=== PATIENT | male | born 1975 | race Caucasian/White ===

== ENCOUNTER 2022-01-01 23:31 | Emergency (ER) | payer BC ==
[2022-01-02] MEDS ORDERED: ASPIRIN 81 MG CHEWABLE TABLET ONE (00:13)
[2022-01-02 00:39] LABS: Absolute Lymphocytes (CBC) 3.3 K/uL (0.7-4.9); Hematocrit 41.4 % (39.6-49.0); Lymphocytes % 38.5 % (15.3-44.8); MCV 86.6 fL (80-100); MPV 8.3 fL (7.6-11.3); RBC Red Blood Cell Count 4.77 M/uL (4.33-5.43)
[2022-01-02 00:56] LABS: Troponin High Sensitivity 4.4 pg/mL (<58.9)
[2022-01-02 00:57] LABS: Potassium 3.7 mmol/L (3.5-5.1)
--- NOTE | 2022-01-02 01:44 | ER ---
Nurse's Notes [facility] Name: Sathya Valladares Age: 46 yrs Sex: Male : 1975 Arrival Date: 01/01/2022 Time: 23:33 Bed 16 Private MD: Diagnosis: Pain in left shoulder;Left sided neck pain Presentation: 01/01 23:42 Chief complaint: Patient states: Intermittent left shoulder/arm pain - began at 2100. ld1 Coronavirus screen: At this time, the client does not indicate any symptoms associated with coronavirus-19. Ebola Screen: No symptoms or risks identified at this time. Initial Sepsis Screen: Does the patient meet any 2 criteria? No. Patient's initial sepsis screen is negative. Does the patient have a suspected source of infection? No. Patient's initial sepsis screen is negative. Risk Assessment: Do you want to hurt yourself or someone else? Patient reports no desire to harm self or others. Onset of symptoms was January 01, 2022. 23:42 Method Of Arrival: Ambulatory ld1 23:42 Acuity: DESTINEE 3 ld1 Triage Assessment: 23:44 General: Appears in no apparent distress. comfortable, Behavior is calm, cooperative, ld1 appropriate for age. Pain: Complains of pain in anterior aspect of left shoulder and left sternocleidomastoid Pain does not radiate. Pain currently is 2 out of 10 on a pain scale. Quality of pain is described as sharp, throbbing, Pain began 2 hours ago. Is intermittent. EENT: No signs and/or symptoms were reported regarding the EENT system. Neuro: Level of Consciousness is awake, alert, obeys commands, Oriented to person, place, time, situation, Appropriate for age. Cardiovascular: Capillary refill < 3 seconds Patient's skin is warm and dry. Respiratory: Airway is patent Respiratory effort is even, unlabored. GI: Abdomen is round non-distended. : No signs and/or symptoms were reported regarding the genitourinary system. Derm: No signs and/or symptoms reported regarding the dermatologic system. Musculoskeletal: No signs and/or symptoms reported regarding the musculoskeletal system. Historical: - Allergies: 23:42 No Known Allergies; ld1 - PMHx: 23:42 Diabetes mellitus; ld1 - PSHx: 23:42 Tonsillectomy; ld1 - Immunization history:: Adult Immunizations up to date, Client reports receiving the 2nd dose of the Covid vaccine. - Social history:: Smoking status: Patient denies any tobacco usage or history of. Patient uses alcohol, occasionally. Screenin/09 00:00 Abuse screen: Denies threats or abuse. Nutritional screening: No deficits noted. jb4 Tuberculosis screening: No symptoms or risk factors identified. Fall Risk None identified. Assessment: 00:00 General: Appears in no apparent distress. uncomfortable, Behavior is calm, cooperative, jb4 appropriate for age. Pain: Complains of pain in left trapezius and left axilla Pain radiates to right axilla and right posterior upper chest wall Pain currently is 4 out of 10 on a pain scale. Neuro: Level of Consciousness is awake, alert, obeys commands, Oriented to person, place, time, situation. Cardiovascular: Patient's skin is warm and dry. Respiratory: Airway is patent Respiratory effort is even, unlabored, Respiratory pattern is regular, symmetrical. Derm: Skin is intact, Skin is pink, warm \T\ dry. Musculoskeletal: Circulation, motion, and sensation intact. Range of motion: intact in all extremities. 01:39 Reassessment: Patient appears in no apparent distress at this time. Patient and/or jb4 family updated on plan of care and expected duration. Pain level reassessed. Patient is alert, oriented x 3, equal unlabored respirations, skin warm/dry/pink. 02:00 Reassessment: Patient appears in no apparent distress at this time. Patient and/or jb4 family updated on plan of care and expected duration. Pain level reassessed. Patient is alert, oriented x 3, equal unlabored respirations, skin warm/dry/pink. Vital Signs: 01/01 23:42 BP 136 / 83; Pulse 80; Resp 18; Temp 97.6(O); Pulse Ox 95% on R/A; Weight 127.01 kg; ld1 Height 5 ft. 11 in. (180.34 cm); Pain 07/06; 01/02 01:39 BP 120 / 79; Pulse 77; Resp 20; Pulse Ox 96% on R/A; jb4 01/01 23:42 Body Mass Index 39.05 (127.01 kg, 180.34 cm) ld1 ED Course: 01/01 23:33 Patient arrived in ED. ja2 23:44 Triage completed. ld1 23:44 Arm band placed on right wrist. ld1 23:51 Pilar Gaspar MD is Attending Physician. sd2 01/02 00:00 Patient has correct armband on for positive identification. Placed in gown. Bed in low jb4 position. Call light in reach. Side rails up X 1. Client placed on continuous cardiac and pulse oximetry monitoring. NIBP monitoring applied. campus monitor on. 00:02 Sathya Valladares, RN is Primary Nurse. jb4 00:34 XRAY Chest (1 view) In Process Unspecified. EDMS 00:34 XRAY Shoulder LEFT 2 view In Process Unspecified. EDMS 01:40 No provider procedures requiring assistance completed. Patient did not have IV access jb4 during this emergency room visit. Administered Medications: 00:12 Drug: Aspirin Chewable Tablet 324 mg Route: PO; jb4 00:45 Follow up: Response: No adverse reaction jb4 Medication: 01:39 VIS not applicable for this client. jb4 Outcome: 01:43 Discharge ordered by . sd2 02:00 Discharged to home ambulatory. jb4 02:00 Condition: stable 02:00 Discharge instructions given to patient, Instructed on discharge instructions, follow up and referral plans. Demonstrated understanding of instructions, follow-up care. 02:17 Patient left the ED. jb4 Signatures: Dispatcher [employer] EDSathya Steen, RN ABEBE jb4 Jeannie Beal RN RN ld1 Jenni Tom ja2 Pilar Gaspar MD MD sd2
--- NOTE | 2022-01-02 01:44 | EDPHYS ---
Physician Documentation [facility] Name: Sathya Valladares Age: 46 yrs Sex: Male : 1975 Arrival Date: 01/01/2022 Time: 23:33 Bed 16 Private MD: ED Physician Pilar Gaspar HPI: 01/01 23:59 This 46 yrs old Male presents to ER via Ambulatory with complaints of Shoulder Pain, sd2 Neck Pain, <24hrs Old, Dizziness. 23:59 46-year-old male presents with a chief complaint of left-sided shoulder and neck pain sd2 that started around 9 PM this evening. Patient reports he had some left anterior shoulder pain that started radiating down his left arm and up into the left side of his neck. He reports he was just sitting down getting children ready for bed when it started. He reports the pain going down his arm and into his neck has subsided but he continues to have a 2 out of 10 pain in his left anterior shoulder. He reports having chest pain in the past that was more midsternal in nature and has had 3 negative stress test in the past. He denies any prior cardiac history and is not currently on any medications aside from diabetes. He is a non-smoker. Did not take anything for the pain [employer]. No significant alleviating or aggravating factors.. Historical: - Allergies: 23:42 No Known Allergies; ld1 - PMHx: 23:42 Diabetes mellitus; ld1 - PSHx: 23:42 Tonsillectomy; ld1 - Immunization history:: Adult Immunizations up to date, Client reports receiving the 2nd dose of the Covid vaccine. - Social history:: Smoking status: Patient denies any tobacco usage or history of. Patient uses alcohol, occasionally. ROS: 23:59 Constitutional: Negative for fever, chills, and weight loss, Eyes: Negative for injury, sd2 pain, redness, and discharge, Cardiovascular: Negative for chest pain, palpitations, and edema, Respiratory: Negative for shortness of breath, cough, wheezing. Abdomen/GI: Negative for abdominal pain, nausea, vomiting, diarrhea. MS/Extremity: Negative for injury and deformity. Positive for left shoulder and neck pain. Skin: Negative for injury, rash, and discoloration, Neuro: Negative for headache, numbness and tingling. Exam: 23:59 Constitutional: This is a well developed, well nourished patient who is awake, alert, sd2 and in no acute distress. Head/Face: Normocephalic, atraumatic. Eyes: EOMI, normal conjunctiva bilaterally Chest/axilla: Normal chest wall appearance and motion. Nontender with no deformity. Cardiovascular: Regular rate and rhythm with a normal S1 and S2. No gallops, murmurs, or rubs. 2+ distal pulses. Respiratory: Lungs have equal breath sounds bilaterally, clear to auscultation and percussion. No rales, rhonchi or wheezes noted. No increased work of breathing, no retractions or nasal flaring. Abdomen/GI: Soft, non-tender, with normal bowel sounds. No guarding or rebound. No evidence of tenderness throughout. Skin: Warm, dry with normal turgor. Normal color with no rashes, no lesions, and no evidence of cellulitis. MS/ Extremity: Pulses equal, no cyanosis. Neurovascular intact. Full, normal range of motion. Ambulatory without difficulty. No pain with ROM of L shoulder. Pain improved with palpation of the area where patient states pain is located at the L anterior shoulder. No midline spinal tenderness of TTP of the L cervical paraspinal area. Psych: Awake, alert, with orientation to person, place and time. Behavior, mood, and affect are within normal limits. 23:59 ECG was reviewed by the Attending Physician. NSR, rate 82, no STEMI criteria, rightward sd2 axis, TWI in lead III Vital Signs: 23:42 BP 136 / 83; Pulse 80; Resp 18; Temp 97.6(O); Pulse Ox 95% on R/A; Weight 127.01 kg; ld1 Height 5 ft. 11 in. (180.34 cm); Pain 2/; 01/02 01:39 BP 120 / 79; Pulse 77; Resp 20; Pulse Ox 96% on R/A; jb4 01/01 23:42 Body Mass Index 39.05 (127.01 kg, 180.34 cm) ld1 MDM: 01/01 23:51 Patient medically screened. sd2 23:59 Differential diagnosis: ACS, PE, MSK, anxiety, arthritis among others. Data reviewed: sd2 vital signs, nurses notes. 01/02 01:36 Data reviewed: lab test result(s), EKG, radiologic studies, plain films. Counseling: I sd2 had a detailed discussion with the patient and/or guardian regarding: the historical points, exam findings, and any diagnostic results supporting the discharge/admit diagnosis, lab results, radiology results, the need for outpatient follow up, to return to the emergency department if symptoms worsen or persist or if there are any questions or concerns that arise at home. Medical screen evaluation completed. [facility] emergency medical condition absent. 01:41 ED course: Labs and imaging reviewed. XRs with no acute process. Labs grossly WNCL sd2 aside from hyperglycemia present without evidence of DKA or HHS. Trop neg. EKG with no ischemic changes. Suspect possible MSK etiology. Pt with no actual CP just L anterior shoulder pain rated at a 1-2 out of 10. Pt advised of continued supportive care and need for outpatient follow up. Verbalizes understanding of discharge plan and strict return precautions. . 01/01 23:59 Order name: CBC with Diff; Complete Time: 01:07 2 01/01 23:59 Order name: BMP; Complete Time: 01:07 sd2 01/01 23:59 Order name: Troponin High Sensitivity; Complete Time: 01:07 sd2 01/01 23:59 Order name: XRAY Chest (1 view) sd2 01/01 23:59 Order name: XRAY Shoulder LEFT 2 view sd2 Administered Medications: 00:12 Drug: Aspirin Chewable Tablet 324 mg Route: PO; jb4 00:45 Follow up: Response: No adverse reaction jb4 Disposition Summary: 01/02/22 01:43 Discharge Ordered Location: Home sd2 Problem: new sd2 Symptoms: have improved sd2 Condition: Stable sd2 Diagnosis - Pain in left shoulder sd2 - Left sided neck pain sd2 Followup: sd2 - With: Private Physician - When: 2 - 3 days - Reason: Recheck today's complaints, Continuance of care, Re-evaluation by your physician Followup: sd2 - With: Emergency Department - When: As needed - Reason: Discharge Instructions: - Discharge Summary Sheet sd2 - Musculoskeletal Pain sd2 - Shoulder Pain sd2 - Shoulder Range of Motion Exercises sd2 Forms: - Medication Reconciliation Form sd2 - Thank You Letter sd2 - Antibiotic Education sd2 - Prescription Opioid Use sd2 Signatures: Dispatcher [employer] EDSathya Steen RN RN jb4 Jeannie Beal RN RN ld1 Pilar Gaspar MD MD sd2
[2022-01-02 05:50] VITALS: TEMP 97.6
[2022-01-02 05:52] VITALS: BP 120/79; O2SAT 96
--- NOTE | 2022-01-02 10:37 | EKG ---
Test Date: 2022-01-01 Test Time: 23:46:28 Shook Machine Operator: LADARIUS MEASUREMENT RESULTS: Intervals: Rate: 82 AK: 196 QRSD: 90 QT: 360 QTc: 420 Adona: P: 22 AK: 196 QRS: 93 T: 0 INTERPRETIVE STATEMENTS: Normal sinus rhythm Rightward axis Cannot rule out Anterior infarct, age undetermined Abnormal ECG No previous ECG available for comparison Electronically Signed On 01-02-22 10:36:01 CDT by Mulugeta Ocasio
--- NOTE | 2022-01-02 14:49 | RAD REPORT ---
EXAM DESCRIPTION: RAD - Shoulder Left 2 View - 01/02/2022 12:32 am CLINICAL HISTORY: PAIN TECHNIQUE: Two views of the left shoulder. COMPARISON: No relevant prior studies available. FINDINGS: Bones/joints: Unremarkable. No acute fracture. No dislocation. Soft tissues: Unremarkable. IMPRESSION: No acute injury. Electronically signed by: Kathleen Villanueva MD 01/02/2022 1:25 AM CDT Due to temporary technical issues with the PACS/Fluency reporting system, reports are being signed by the in house radiologists without review as a courtesy to insure prompt reporting. The interpreting radiologist is fully responsible for the content of the report.
--- NOTE | 2022-01-02 15:01 | RAD REPORT ---
EXAM DESCRIPTION: RAD - Chest Single View - 01/02/2022 12:32 am CLINICAL HISTORY: 46 years Male CHEST PAIN COMPARISON: None TECHNIQUE: AP view of the chest was obtained. FINDINGS: Cardiac silhouette is mildly enlarged. Central vessels are not increased. No infiltrates or effusions seen. No consolidation. No pneumothorax. IMPRESSION: Enlarged heart with no evidence for congestive heart failure. No infiltrate seen. Electronically signed by: Ailyn Morton MD 01/02/2022 1:15 AM CDT Due to temporary technical issues with the PACS/Fluency reporting system, reports are being signed by the in house radiologists without review as a courtesy to insure prompt reporting. The interpreting radiologist is fully responsible for the content of the report.
== END 2022-01-02 02:17 | disposition home or self-care (01) ==
LOC: ER 23:31
DX: M25.512 Pain in left shoulder (principal); M54.2 Cervicalgia; E11.9 Type 2 diabetes mellitus without complications
CPT/HCPCS: 36415; 71045; 80048; 84484; 85025; 93005